=== PATIENT | female | born 1965 | race Caucasian/White ===

== ENCOUNTER 2016-12-23 10:39 | Emergency (ER) | payer MEDICAID ==
[~2016-12-23] VITALS: Ht 170.2 cm; Wt 103.1 kg
[2016-12-23 11:40] LABS: BASOPHILS % 0.6 % (0.0-2.0); EOSINOPHILS % 0.5 % (0.0-5.0); HEMATOCRIT. 46.9 % (36.0-48.0); HEMOGLOBIN. 16.1 g/dL (12.0-16.0); LYMPHOCYTES % 22.6 % (20.0-50.0); MEAN CORPUSCULAR HEMOGLOBIN 30.5 pg (28.0-32.0); MEAN CORPUSCULAR VOLUME 88.7 fL (81.0-99.0); MEAN PLATELET VOLUME 8.8 fl (7.4-10.4); MONOCYTES % 6.8 % (2.0-8.0); NEUTROPHILS % 69.5 % (40.0-76.0); PLATELET 186 x1000/uL (130-400); RED BLOOD CELL COUNT 5.28 mill/uL (4.2-5.4); RED CELL DISTRIBUTION WIDTH 14.9 % (11.6-14.6)
[2016-12-23 11:51] LABS: CARBON DIOXIDE 23 mEq/L (21-32); CHLORIDE 108 mEq/L (98-107)
[2016-12-23 11:57] LABS: TROPONIN I < 0.02 ng/mL (0.00-0.04)
[2016-12-23] MEDS ORDERED: ASPIRIN 81MG TABLET PO STA (11:58)
[2016-12-23 13:32] LABS: CLARITY URINE CLEAR (CLEAR); COLOR URINE YELLOW (YELLOW); KETONES URINE NEGATIVE (NEGATIVE); LEUKOCYTE ESTERASE URINE 1+ (NEGATIVE); NITRITE URINE NEGATIVE (NEGATIVE); OCCULT BLOOD URINE NEGATIVE (NEGATIVE); PH URINE 7.5 (4.5-8.0); PROTEIN URINE NEGATIVE (NEGATIVE); SPECIFIC GRAVITY URINE 1.007 (1.005-1.030); UROBILINOGEN URINE 0.2 E.U./dL (0.2-1.0)
[2016-12-23] MEDS ORDERED: LORAZEPAM 1MG TABLET PO PRN (13:45)
[2016-12-23] MEDS ORDERED: MORPHINE SULFATE 2 MG/ML CPJ (NOT FOR IM USE) IV PRN (13:45)
[2016-12-23] MEDS ORDERED: MAGNESIUM/ALUMINUM HYDROXIDE/SIMETHICONE 30ML UDC PO PRN (13:45)
[2016-12-23] MEDS ORDERED: CLONIDINE 0.1MG TABLET PO PRN (13:45)
[2016-12-23] MEDS ORDERED: IPRATROPIUM/ALBUTEROL 0.5-3(2.5)MG/3ML NEB INH PRN (13:45)
[2016-12-23] MEDS ORDERED: ACETAMINOPHEN 325MG TABLET PO PRN (13:45)
[2016-12-23] MEDS ORDERED: DIPHENHYDRAMINE 50MG/ML VIAL IV PRN (13:45)
[2016-12-23] MEDS ORDERED: ONDANSETRON HCL 4MG/2ML VIAL IV PRN (13:45)
[2016-12-23] MEDS ORDERED: DOCUSATE SODIUM 100MG CAPSULE PO PRN (13:45)
[2016-12-23 14:38] VITALS: BP 146/95
[2016-12-23 17:33] LABS: *AMPHETAMINES SCREEN URINE NEGATIVE (NEGATIVE); *BARBITURATES SCREEN URINE NEGATIVE (NEGATIVE); *BENZODIAZEPINES SCREEN URINE NEGATIVE (NEGATIVE); *COCAINE SCREEN URINE NEGATIVE (NEGATIVE); CANNABINOID URINE SCREEN NEGATIVE (NEGATIVE); METHADONE URINE SCREEN NEGATIVE (NEGATIVE); OPIATES URINE SCREEN NEGATIVE (NEGATIVE); PHENCYCLIDINE URINE SCREEN NEGATIVE (NEGATIVE)
== END 2016-12-23 14:40 | disposition left against medical advice (07) ==
LOC: ER 10:40 → ENRESERV 13:54 → CANRESERV 13:54 → ER 14:40 → CANBEDREQ 16:57
DX: I10 Essential (primary) hypertension (principal); R91.1 Solitary pulmonary nodule; R07.89 Other chest pain; Z88.0 Allergy status to penicillin
CPT/HCPCS: 36415; 71010; 80053; 80305; 81001; 83690; 84484; 85025; 93005; 99285; Z7610

== ENCOUNTER 2018-03-23 11:32 | Inpatient (IN) | payer MEDICAID ==
[~2018-03-23] VITALS: Ht 317.5 cm; Wt 99.8 kg
[2018-03-23] MEDS ORDERED: ASPIRIN 81MG TABLET PO ONE (12:00)
[2018-03-23 12:42] LABS: BASOPHILS % 0.9 % (0.0-2.0); CHLORIDE 104 mEq/L (98-107); EOSINOPHILS % 0.3 % (0.0-5.0); HEMATOCRIT. 38.6 % (36.0-48.0); HEMOGLOBIN. 12.8 g/dL (12.0-16.0); LYMPHOCYTES % 16.3 % (20.0-50.0); MEAN CORPUSCULAR VOLUME 87.7 fL (81.0-99.0); MEAN PLATELET VOLUME 8.3 fl (7.4-10.4); MONOCYTES % 6.6 % (2.0-8.0); NEUTROPHILS % 75.9 % (40.0-76.0); PLATELET 406 x1000/uL (130-400); RED CELL DISTRIBUTION WIDTH 14.7 % (11.6-14.6)
[2018-03-23 13:21] LABS: D-DIMER 1.69 mg/L FEU (<0.50); INR 1.1; PARTIAL THROMBOPLASTIN TIME 31.7 sec (23.4-31.0)
[2018-03-23] MEDS ORDERED: IOHEXOL-350 100 ML BOTTLE ONE (15:21)
[2018-03-24] VITALS: BP_SYST 127; BP_SYST 128; BP_DIAS 71; BP_DIAS 84
[2018-03-24] MEDS ORDERED: MORPHINE SULFATE 4 MG/ML CPJ (NOT FOR IM USE) IV PRN (00:45)
[2018-03-24] MEDS ORDERED: METOPROLOL TARTRATE 25MG TABLET PO SCH ×2 (00:45→09:00)
[2018-03-24] MEDS ORDERED: NITROGLYCERIN OINT 1GM/INCH UDPKT TD SCH (06:00)
[2018-03-24 08:00] VITALS: BP 131/87
[2018-03-24 08:14] LABS: CHLORIDE 105 mEq/L (98-107)
[2018-03-24 08:25] LABS: LDL CHOLESTEROL 113 mg/dL (5-100)
[2018-03-24] MEDS ORDERED: ACETAMINOPHEN 325MG TABLET PO PRN (08:30)
[2018-03-24 08:31] LABS: HDL CHOLESTEROL 36 mg/dL (40-59)
[2018-03-24] MEDS ORDERED: AMLO2.5T45 MT (08:43)
[2018-03-24] MEDS ORDERED: IBUP-2029 PO (08:52)
[2018-03-24] MEDS ORDERED: ASPIRIN 325MG EC TABLET PO SCH (09:00)
== END 2018-03-24 14:17 | disposition left against medical advice (07) | DRG 136 ==
LOC: ER 12:17 → 6WST 15:57 → EDBEDREQ 15:59 → EDBEDREQTM 15:59 → ENRESERV 19:10
PROVIDERS: ADMIT Internal Medicine; ATTEND Internal Medicine
DX: C78.00 Secondary malignant neoplasm of unspecified lung (principal); I11.9 Hypertensive heart disease without heart failure; E44.1 Mild protein-calorie malnutrition; I51.7 Cardiomegaly; Z88.0 Allergy status to penicillin
CPT/HCPCS: 36415; 71045; 71275; 80061; 83880; 84484; 85379; 93005; 99285; Q9967